=== PATIENT | male | born 1935 | race Caucasian/White ===

== ENCOUNTER 2016-10-10 07:21 | Observation (INO) | payer MEDICARE, MEDICAID ==
[~2016-10-10] VITALS: Ht 165.1 cm; Wt 105.1 kg
--- NOTE | ~2016-10-10 | HP ---
PATIENT'S NAME: JOSE FRANCISCO [facility] AGE: 81 Y [address] ROOM: [place] [id number] [place] [facility] [place]: 10[place]2016 History & Physical DISCHARGE DATE: FAMILY PHYSICIAN: Jose Elias Short MD ATTENDING PHYSICIAN: Ashley Davalos DATE OF SERVICE: ATTENDING PHYSICIAN: Marcelino Reynolds MD CHIEF COMPLAINT: Status post suprapubic cystostomy with circumcision. HISTORY OF PRESENT ILLNESS: This is an 81-year-old male with a history of obstructive uropathy. The patient was recently admitted to [facility] from to 09/16 to 09/22/2016. At that point of time, the patient had presented for urologic evaluation and procedure for a planned circumcision for urethral stricture, however, this surgery could not be accomplished because the patient was found to be in atrial fibrillation with RVR. He was then rate controlled and sent back to the detention. The patient presented to Dr. Davalos office today for an elective circumcision for phimosis and suprapubic cystostomy for urinary retention and obstructive uropathy. The patient underwent the procedure. Subsequent to the procedure, the patient required about 6 L of oxygen. He does have a history of scarring of bilateral lungs and cardiomegaly. The patient did not require any oxygen prior to the procedure. This was acute hypoxic respiratory failure. The patient was then admitted to hospitalist service for further evaluation and management of shortness of breath. At the time of my examination, the patient is very agitated and denies any pain. He refuses evaluation at this point of time. He refuses any other history at this point of time. REVIEW OF SYSTEMS: A 10-point review of systems could not be accomplished because the patient is confused and very agitated. HOME MEDICATIONS: Per MAR. PAST MEDICAL HISTORY: 1. Urinary retention. PATIENT'S NAME: JOSE FRANCISCO [facility] AGE: 81 Y [address] ROOM: [place] [address] [place] [facility] [place]: 10/10/2016 History & Physical DISCHARGE DATE: FAMILY PHYSICIAN: Jose Elias Short MD ATTENDING PHYSICIAN: Ashley Davalos 2. Urethral stricture. 3. Acute kidney injury. 4. Right BKA. 5. Peripheral neuropathy. 6. CHF, unspecified. 7. Recent history of atrial fibrillation with RVR. 8. Hypertension. 9. Dyslipidemia. 10. History of constipation. SOCIAL HISTORY: The patient lives at a detention and is in protective custody by the state and has a court assigned legal guardian per reviewed records. Unable to obtain any other social history at this point of time. FAMILY HISTORY: Could not be obtained because the patient is very agitated and refuses to answer any questions. PHYSICAL EXAMINATION: VITAL SIGNS: Temperature 98.1, pulse 86 regular, respirations 14, blood pressure 142/63, saturation 91% on 5 L nasal cannula oxygen. GENERAL: The patient is alert, but refuses to follow commands and refuses to cooperate with examination. HEENT: Head is normocephalic, atraumatic. Pupils are equal, round, reactive to light. No scleral icterus noted. No conjunctival injection noted. Throat clear. Mucous membranes moist. NECK: Supple. No nuchal rigidity. HEART: Regular rate and rhythm. LUNGS: Clear to auscultation bilaterally. ABDOMEN: Soft, nontender, nondistended. Bowel sounds are present. GENITOURINARY: The patient has a suprapubic cystostomy. He also has undergone circumcision and has a Wesley catheter in place currently. EXTREMITIES: No clubbing, cyanosis, or edema status post right BKA. NEUROLOGIC: The patient refuses to follow commands. He is agitated currently. Pupils are equal, round, and reactive to light bilaterally. DIAGNOSTIC STUDIES: Chest x-ray showed cardiomegaly and also showed diffuse parenchymal scarring bilaterally. CBC and BMP will be obtained in the morning. ASSESSMENT AND PLAN: 81-year-old male, status post circumcision with suprapubic catheter placement. 1. Phimosis. The patient is status post circumcision. Further plan per Urology. PATIENT'S NAME: JOSE FRANCISCO [facility] AGE: 81 Y [address] ROOM: [address] [address] [place] [facility] [place]: 10/10/2016 History & Physical DISCHARGE DATE: FAMILY PHYSICIAN: Jose Elias Short MD ATTENDING PHYSICIAN: Ashley Davalos 2. Urinary retention. The patient has obstructive uropathy. He is status post suprapubic cystostomy. Further plan and recommendations per Urology. 3. Acute hypoxic respiratory failure. The patient has acute hypoxic respiratory failure after the surgery. Chest x-ray has been obtained and shows bilateral parenchymal scarring and fibrosis, there is also cardiomegaly. I will continue on home medications now, wean off oxygen. 4. Atrial fibrillation, currently rate controlled. Continue home medications. 5. Constipation, continue home medications. 6. Hypertension, continue home medications. 7. Dyslipidemia, continue Lipitor. 8. Code status. The patient apparently has a court-appointed guardian. I do not have his current code status and the patient is unable to answer currently. We will obtain any advance directive from the detention. MARCELINO REYNOLDS MD MT/romain /[id number] D: [id number] T: [id number] HISTORY & PHYSICAL
--- NOTE | ~2016-10-10 | OR ---
PATIENT'S NAME: JOSE FRANCISCO [facility] AGE: 81 Y [address] ROOM: [place] [address] LOCATION: [facility] [place] ADMIT DATE: 10/10/2016 OR/Procedure Report DISCHARGE DATE: FAMILY PHYSICIAN: Jose Elias Short MD ATTENDING PHYSICIAN: Chiquis Aquino SURGEON: Chiquis Aquino MD RESPIRATORY CARE PRACTITIONER: DATE OF PROCEDURE: 10/10/2016 PREOPERATIVE DIAGNOSES: 1. Phimosis. 2. Urinary retention. POSTOPERATIVE DIAGNOSES: 1. Phimosis. 2. Urinary retention. PROCEDURE PERFORMED: Suprapubic cystotomy and circumcision. ANESTHESIA: General. COMPLICATIONS: None. INDICATION FOR PROCEDURE: The patient is an 81-year-old male with tight phimosis and also urinary retention. DETAILS OF PROCEDURE: After informed consent was obtained, the patient was taken to the operating room. A general anesthetic was applied. He was placed in the dorsal lithotomy position. The groin area and lower abdomen were prepped and draped in normal sterile fashion. Initial attempts to pass a cystoscope were unsuccessful secondary to his tight phimosis. Therefore, a dorsal slit was made. Hemostats were used to create an avascular plane on the dorsum of the foreskin. This was then divided with scissors and electrocautery. This allowed exposure of the glans. The cystoscope was then introduced into the urethra and bladder. The patient was noted to have significant prostate enlargement with median lobe enlargement. Upon entering the bladder, the bladder was filled. The patient was then placed in Trendelenburg position. A curved Lowsley retractor was introduced. The tip was placed against the abdominal wall. Because of his obesity, it was somewhat difficult to feel. A small skin incision was then made over the Lowsley retractor. This was carried down to the anterior fascial layer. These were then opened with electrocautery over the tip of the Lowsley retractor. A 24-Turkish Wesley catheter was attached to the end of the retractor and pulled through. Cystoscopy was then used to back the catheter into the bladder. The balloon was then inflated. Next, the subcuticular PATIENT'S NAME: JOSE FRANCISCO [facility] AGE: 81 Y [address] ROOM: [place] [address] LOCATION: [facility] [place] ADMIT DATE: 10/10/2016 OR/Procedure Report DISCHARGE DATE: FAMILY PHYSICIAN: Jose Elias Short MD ATTENDING PHYSICIAN: Chiquis Aquino layer and fat were closed with 2-0 Vicryl suture. The skin was closed with 2- 0 Prolene sutures and the catheter was secured with 2-0 Prolene suture. The wound was then dressed in normal sterile fashion. The patient was then re- prepped and placed in the supine position. I completed the patient's circumcision. Dorsal slit was continued down. The patient's foreskin was very edematous. I then excised the remaining foreskin with electrocautery. The edges were then reapproximated with interrupted 3-0 chromic sutures in the vertical mattress fashion. The patient had some bloody drainage from trauma from passing his Lowsley retractor. Therefore, I placed a 16-Turkish coude catheter to tamponade bleeding. His circumcision was dressed in normal sterile fashion. The patient tolerated his procedure and was transferred to recovery room in good condition. CHIQUIS AQUINO MD CHRIS/modl /[id number] CC: Jose Elias Short MD d: 10/11/16 0525 t: 10/24/16 0942, OPERATIVE SUMMARY
[~2016-10-10 07:21] MED LIST: ASPIRIN EC81 MG PO; BACTRIM DS1 TAB PO; CITROMA296 ML PO; COLACE100 MG PO; COREG 3.1253.125 MG PO; DULCOLAX10 MG R; EUCERIN CREME57 GM TOP; FLOMAX0.4 MG PO; GABAPENTIN100 MG PO; K-TAB ER20 MEQ PO; KAOPECTATE262 MG/15 PO; LASIX40 MG PO; LIPITOR40 MG PO; LISINOPRIL2.5 MG PO; LOVENOX 4040 MG/0.4 SUB-Q; MILK OF MA400 MG/5 M PO; MIRALAX PO527 GM/BOT PO; MYLANTA (MAG-AL30 ML PO; NUCYNTA75 MG PO; OXYGEN M-15 INH; PERCOCET 5-3251 EACH PO; PHENERGAN25 MG R; PHENERGAN25 MG/1 M1 IM; REFRESH TEARS15 ML OPHTH; ROBITUSSIN DM120 ML PO; RYTHMOL150 MG PO; TRIAMCINOLONE454 GM TOP; TUMS REGULAR ST1 TAB PO; TYLENOL EXTRA500 MG PO; TYLENOL650 MG R
[2016-10-11 06:22] LABS: BASOPHIL % 0.2 %; HEMATOCRIT 39.3 % (33.0-50.0); HEMOGLOBIN 12.9 g/dL (11.0-16.0); IMMATURE GRANULOCYTE # 0.1 K/uL (0.0-0.3); IMMATURE GRANULOCYTE % 0.6 %; LYMPHOCYTE # 1.1 K/uL (0.8-4.0); LYMPHOCYTE % 8.4 %; MCH 28.4 pg (27.0-34.0); MCHC 32.8 gm/dL (32.0-36.5); MCV 86.6 fl (83.0-98.0); MONOCYTE # 1.4 K/uL (0.0-1.0); MONOCYTE % 10.3 %; MPV 9.5 fl (9.4-12.4); NEUTROPHIL # (ANC) 10.8 K/uL (1.4-9.0); NEUTROPHIL % 80.5 %; NRBC % 0 /100WBC (0-0.00); RBC 4.54 M/uL (3.50-5.50); RDW-CV 14.2 % (11.9-14.6); WBC 13.4 K/uL (4.0-11.0)
[2016-10-11 06:24] LABS: PLATELET COUNT 260 K/uL (150-450)
[2016-10-11 06:34] LABS: ANION GAP 10.8 (10.0-19.0); BLOOD UREA NITROGEN 23 mg/dL (6-24); CALCIUM 8.8 mg/dL (8.5-10.5); CHLORIDE 100 mMol/L (96-110); CO2 30 mMol/L (22-32); ESTIMATED GFR (MDRD EQUATION) > 60; MAGNESIUM 2.5 mg/dL (1.3-2.6); POTASSIUM 4.8 mMol/L (3.7-5.1); SODIUM 136 mMol/L (135-145)
== END 2016-10-11 14:40 ==
LOC: GMSU 07:21 → GSDC 07:21 → GMSU 07:22 → GSDC 07:30 → GMSU 10-11 14:40
PROVIDERS: Family Medicine; ADMIT Urology
PROC: 0T9B40Z Drainage of Bladder with Drainage Device, Percutaneous Endoscopic Approach (ICD-10-PCS; principal; 2016-10-10)
PROC: 0VTTXZZ Resection of Prepuce, External Approach (ICD-10-PCS; 2016-10-10)
DX: N47.7 Other inflammatory diseases of prepuce (principal); N47.1 Phimosis; R33.9 Retention of urine, unspecified; N40.0 Benign prostatic hyperplasia without lower urinary tract symptoms; N17.9 Acute kidney failure, unspecified; N13.9 Obstructive and reflux uropathy, unspecified; I11.0 Hypertensive heart disease with heart failure; I50.9 Heart failure, unspecified; E66.9 Obesity, unspecified; I48.0 Paroxysmal atrial fibrillation; E78.5 Hyperlipidemia, unspecified; G62.9 Polyneuropathy, unspecified; J96.01 Acute respiratory failure with hypoxia; Z89.511 Acquired absence of right leg below knee; Z79.82 Long term (current) use of aspirin; Z79.899 Other long term (current) drug therapy
CPT/HCPCS: G0378; J1170; J1956; J2001; J2060; J3010; J7120